=== PATIENT | female | born 1995 | race Caucasian/White ===

== ENCOUNTER 2021-06-26 11:06 | Emergency (ER) | payer SELFPAY ==
[~2021-06-26] VITALS: Ht 160 cm; Wt 105.9 kg
[2021-06-26] MEDS ORDERED: CORTISPORIN-TC10 M1 OT (12:04)
[2021-06-26] MEDS ORDERED: AMOXICILLIN 50500 MG PO (12:04)
[2021-06-26 12:09] VITALS: BP 124/76
== END 2021-06-26 12:20 | disposition home or self-care (01) ==
LOC: ED 11:06
DX: H66.92 Otitis media, unspecified, left ear (principal); H60.502 Unspecified acute noninfective otitis externa, left ear; F17.210 Nicotine dependence, cigarettes, uncomplicated

== ENCOUNTER 2022-12-05 22:53 | Emergency (ER) | payer SELFPAY ==
[~2022-12-05] VITALS: Ht 160 cm; Wt 120.5 kg
[~2022-12-05 22:53] MED LIST: AMOXICILLIN 50500 MG PO; CORTISPORIN-TC10 M1 OT; KETOROLAC10 MG PO; PRILOSEC 20MG20 MG PO
[2022-12-05] MEDS ORDERED: MEDROL 4MG DOSPA4 MG PO (23:32)
[2022-12-06 00:30] LABS: BASO # 0.02 K/mm3 (0.02-0.10); EOS # 0.07 K/mm3 (0.04-0.40); EOS % 0.8 % (1.0-5.0); HEMATOCRIT 43.6 % (37.0-47.0); LYMPH# 1.78 K/mm3 (1.50-4.00); MEAN CELL VOLUME 88 fl (78-100); MEAN CORPUSCULAR HEMOGLOBIN 30 pg (27-31); MEAN CORPUSCULAR HGB CONC 34 g/dL (33-37); MEAN PLATELET VOLUME 9.6 fl (7.4-10.4); MONO # 1.47 K/mm3 (0.20-0.80); NEU # 5.12 K/mm3 (1.40-6.50); PLATELET COUNT 164 K/mm3 (130-400); RED BLOOD COUNT 4.98 M/mm3 (4.10-5.30); RED CELL DISTRIBUTION WIDTH 12.5 % (11.5-14.5); WHITE BLOOD COUNT 8.5 K/mm3 (4.8-10.8)
[2022-12-06 00:32] LABS: STREP SCREEN NEGATIVE (NEGATIVE)
[2022-12-06 00:34] LABS: ALBUMIN 3.9 g/dL (3.5-5.0); POTASSIUM 3.5 mmol/L (3.5-5.1)
[2022-12-06 00:35] LABS: CALCIUM 9.3 mg/dL (8.3-10.5)
[2022-12-06 00:37] LABS: TOTAL PROTEIN 7.1 g/dL (6.4-8.3)
[2022-12-06 00:38] LABS: TOTAL BILIRUBIN 0.9 mg/dL (0.2-1.2)
[2022-12-06 00:41] LABS: URINE APPEARANCE HAZY; URINE BILIRUBIN NEGATIVE (NEGATIVE); URINE BLOOD 50 ery/uL (NEGATIVE); URINE COLOR DK YELLOW; URINE GLUCOSE NEGATIVE (NEGATIVE); URINE KETONE NEGATIVE (NEGATIVE); URINE LEUKOCYTE ESTERASE 1+ (NEGATIVE); URINE NITRATE NEGATIVE (NEGATIVE); URINE PROTEIN(semi-quant) TRACE (NEGATIVE); URINE UROBILINOGEN NORMAL (NORMAL)
[2022-12-06 00:42] LABS: URINE MUCUS PRESENT (NOT PRESENT)
[2022-12-06] MEDS ORDERED: ZOFRAN ODT4 MG PO (00:43)
[2022-12-06 01:30] VITALS: BP 108/73
== END 2022-12-06 01:30 | disposition home or self-care (01) ==
LOC: ED 22:53
PROVIDERS: Nurse Practitioner
DX: U07.1 COVID-19 (principal); R51.9 Headache, unspecified; R42 Dizziness and giddiness; R50.9 Fever, unspecified; R11.2 Nausea with vomiting, unspecified; Z87.891 Personal history of nicotine dependence; Z28.310 Unvaccinated for COVID-19
CPT/HCPCS: J2405; J7030

== ENCOUNTER → 2023-08-12 | Outpatient (CLI) | payer BC ==
[~2023-08-12] MED LIST changes: +MEDROL 4MG DOSPA4 MG PO; +ZOFRAN ODT4 MG PO
== END ==
LOC: RAD 15:55
DX: M25.561 Pain in right knee (principal)

== ENCOUNTER → 2023-10-15 | Outpatient (CLI) | payer BC ==
[~2023-10-15] MED LIST changes: +FLONASE ALLERG9.9 ML NS; +MACROBID 1100 MG/CAP PO; +MOUNJARO7.5 MG/0.5 SQ; +SPIRONOLACTONE50 M1 PO
== END ==
LOC: RAD 10:26
DX: J32.9 Chronic sinusitis, unspecified (principal)

== ENCOUNTER 2023-10-16 03:48 | Emergency (ER) | payer BC ==
[~2023-10-16 03:48] MED LIST changes: -FLONASE ALLERG9.9 ML NS; -MACROBID 1100 MG/CAP PO; -MOUNJARO7.5 MG/0.5 SQ; -SPIRONOLACTONE50 M1 PO
[2023-10-16] MEDS ORDERED: MACROBID 1100 MG/CAP PO (04:35)
[2023-10-16] MEDS ORDERED: SPIRONOLACTONE50 M1 PO (04:36)
[2023-10-16] MEDS ORDERED: MOUNJARO7.5 MG/0.5 SQ (04:38)
[2023-10-16] MEDS ORDERED: FLONASE ALLERG9.9 ML NS (05:07)
[2023-10-16 05:32] VITALS: BP 122/82
== END 2023-10-16 05:32 | disposition home or self-care (01) ==
LOC: ED 03:48
DX: J06.9 Acute upper respiratory infection, unspecified (principal)

== ENCOUNTER → 2024-04-17 | Outpatient (CLI) | payer OTHER ==
[~2024-04-17] MED LIST changes: +FLONASE ALLERG9.9 ML NS; +MACROBID 1100 MG/CAP PO; +MOUNJARO7.5 MG/0.5 SQ; +SPIRONOLACTONE50 M1 PO
[2024-04-17 09:19] LABS: BASO # 0.03 K/mm3 (0.02-0.10); EOS # 0.36 K/mm3 (0.04-0.40); EOS % 3.9 % (1.0-5.0); HEMATOCRIT 46.2 % (37.0-47.0); LYMPH# 2.22 K/mm3 (1.50-4.00); MEAN CELL VOLUME 93 fl (78-100); MEAN CORPUSCULAR HEMOGLOBIN 30 pg (27-31); MEAN CORPUSCULAR HGB CONC 33 g/dL (33-37); MEAN PLATELET VOLUME 10.4 fl (7.4-10.4); MONO # 0.73 K/mm3 (0.20-0.80); NEU # 5.96 K/mm3 (1.40-6.50); PLATELET COUNT 186 K/mm3 (130-400); RED BLOOD COUNT 4.97 M/mm3 (4.10-5.30); WHITE BLOOD COUNT 9.3 K/mm3 (4.8-10.8)
[2024-04-17 09:28] LABS: ALBUMIN 4.4 g/dL (3.5-5.0); CALCIUM 9.9 mg/dL (8.3-10.5)
[2024-04-17 09:30] LABS: TOTAL PROTEIN 7.7 g/dL (6.4-8.3)
[2024-04-17 09:32] LABS: TOTAL BILIRUBIN 0.7 mg/dL (0.2-1.2)
== END ==
LOC: LAB 09:00
PROVIDERS: Physician Assistant
DX: Z13.220 Encounter for screening for lipoid disorders (principal); Z13.29 Encounter for screening for other suspected endocrine disorder; K90.9 Intestinal malabsorption, unspecified; E28.2 Polycystic ovarian syndrome; L68.0 Hirsutism

== ENCOUNTER → 2024-05-07 | Outpatient (CLI) | payer OTHER | LOC: LAB 17:26 | DX: Z20.9 Contact with and (suspected) exposure to unspecified communicable disease (principal) ==